=== PATIENT | male | born 1985 | race Caucasian/White ===

== ENCOUNTER 2019-05-09 10:49 | Emergency (ER) | payer BC ==
[~2019-05-09] VITALS: Ht 180.3 cm; Wt 158.8 kg
== END 2019-05-09 11:48 | disposition home or self-care (01) ==
LOC: ED 10:49
DX: S90.121A Contusion of right lesser toe(s) without damage to nail, initial encounter (principal); E66.01 Morbid (severe) obesity due to excess calories; X58.XXXA Exposure to other specified factors, initial encounter; Y93.89 Activity, other specified; Y92.89 Other specified places as the place of occurrence of the external cause; Y99.8 Other external cause status

== ENCOUNTER 2019-08-28 17:45 | Emergency (ER) | payer OTHER, BC ==
[~2019-08-28] VITALS: Wt 202.3 kg
== END 2019-08-28 18:00 | disposition expired ==
LOC: ED 17:46
DX: I46.9 Cardiac arrest, cause unspecified (principal); S31.114A Laceration without foreign body of abdominal wall, left lower quadrant without penetration into peritoneal cavity, initial encounter; S61.412A Laceration without foreign body of left hand, initial encounter; S61.411A Laceration without foreign body of right hand, initial encounter; V89.2XXA Person injured in unspecified motor-vehicle accident, traffic, initial encounter; Y93.I9 Activity, other involving external motion; Y92.488 Other paved roadways as the place of occurrence of the external cause; Y99.8 Other external cause status